=== PATIENT | male | born 1995 ===

== ENCOUNTER 2019-04-02 04:31 | Emergency (ER) | payer SELFPAY ==
[2019-04-02] MEDS ORDERED: SOLU-Medrol IM ONE (05:08)
[2019-04-02] MEDS ORDERED: BENADRYL PO ONE (05:08)
[2019-04-02] MEDS ORDERED: PEPCID PO ONE (05:09)
--- NOTE | 2019-04-02 05:53 | Emergency Department Report ---
ED General Adult HPI - General Chief complaint: Skin Rash Stated complaint: FOOT RASH Source: patient Mode of arrival: Ambulatory Limitations: No Limitations - History of Present Illness Initial comments: Patient is a 24-year-old -[place] male with no past medical history who presents to the ED with complaint of acute onset persistent itchy erythematous maculopapular urticarial rashes on the dorsal aspect of the feet bilaterally for the last 2 days. Patient states that the itching has been persistent and he describes his as burning sensation. Patient states that he cannot remember any new detergents or fabric home that he may have been exposed to. Patient denies swollen lips, swollen tongue, dizziness, sore throat, cough, wheezing, nausea, vomiting, fever, chills, dysphagia, dysphonia, nasal and sinus congestion or insect bite. MD Complaint: Itching rash; erythematous rash on feet -: Sudden, days(s) (2) Location: lower extremity (bilateral feet) Radiation: non-radiation, extremity (Bilateral dorsal foot) Quality: burning, aching, constant, other (itching) Consistency: constant Improves with: none Worsens with: none Associated Symptoms: denies other symptoms, rash (erythematous maculopapular urticarial rashes on the dorsal feet bilaterally). denies: confusion, chest pain, cough, diaphoresis, fever/chills, headaches, malaise, nausea/vomiting Treatments Prior to Arrival: none - Related Data Previous Rx's Medication Instructions Recorded Last Taken Type Triamcinolone Acetonide 1 applic TP Q12H #15 oint...g. 04/02/19 Unknown Rx diphenhydrAMINE [Benadryl CAP] 25 mg PO Q6HR PRN #30 capsule 04/02/19 Unknown Rx methylPREDNISolone [Medrol 4MG 4 mg PO DAILY #21 tab.ds.pk 04/02/19 Unknown Rx DOSEPAK (21 tabs)] raNITIdine HCl [Zantac] 150 mg PO Q12H #24 tablet 04/02/19 Unknown Rx Allergies Allergy/AdvReac Type Severity Reaction Status Date / Time No Known Allergies Allergy Verified 04/02/19 04:38 ED Review of Systems ROS: Stated complaint: FOOT RASH Other details as noted in HPI Constitutional: denies: chills, fever Eyes: denies: eye pain, eye discharge, vision change ENT: denies: ear pain, throat pain Respiratory: denies: cough, shortness of breath, wheezing Cardiovascular: denies: chest pain, palpitations Endocrine: no symptoms reported Gastrointestinal: denies: abdominal pain, nausea, diarrhea Genitourinary: denies: urgency, dysuria Musculoskeletal: denies: back pain, joint swelling, arthralgia Skin: rash (erythematous itchy maculopapular urticarial rash on the dorsum of feet), change in color (erythematous rash on the dorsal feet), pruritus. denies: lesions Neurological: denies: headache, weakness, paresthesias Psychiatric: denies: anxiety, depression Hematological/Lymphatic: denies: easy bleeding, easy bruising ED Past Medical Hx - Past Medical History Previous Medical History?: No - Surgical History Past Surgical History?: No - Social History Smoking Status: Never Smoker Substance Use Type: None - Medications Home Medications: Home Medications Medication Instructions Recorded Confirmed Last Taken Type Triamcinolone Acetonide 1 applic TP Q12H #15 oint...g. 04/02/19 Unknown Rx diphenhydrAMINE [Benadryl CAP] 25 mg PO Q6HR PRN #30 capsule 04/02/19 Unknown Rx methylPREDNISolone [Medrol 4MG 4 mg PO DAILY #21 tab.ds.pk 04/02/19 Unknown Rx DOSEPAK (21 tabs)] raNITIdine HCl [Zantac] 150 mg PO Q12H #24 tablet 04/02/19 Unknown Rx ED Physical Exam - General Limitations: No Limitations General appearance: alert, in no apparent distress - Head Head exam: Present: atraumatic, normocephalic, normal inspection - Eye Eye exam: Present: normal appearance, PERRL, EOMI Pupils: Present: normal accommodation - ENT ENT exam: Present: normal exam, normal orophraynx, mucous membranes moist, TM's normal bilaterally, normal external ear exam - Neck Neck exam: Present: normal inspection, full ROM - Respiratory Respiratory exam: Present: normal lung sounds bilaterally. Absent: respiratory distress, wheezes, rhonchi, chest wall tenderness, decreased breath sounds, prolonged expiratory - Cardiovascular Cardiovascular Exam: Present: regular rate, normal rhythm, normal heart sounds. Absent: systolic murmur, diastolic murmur, rubs, gallop - GI/Abdominal GI/Abdominal exam: Present: soft, normal bowel sounds. Absent: tenderness, guarding - Rectal Rectal exam: Present: deferred - Extremities Exam Extremities exam: Present: normal inspection, full ROM, normal capillary refill - Back Exam Back exam: Present: normal inspection, full ROM - Neurological Exam Neurological exam: Present: alert, oriented X3, CN II-XII intact, normal gait, reflexes normal - Psychiatric Psychiatric exam: Present: normal affect, normal mood - Skin Skin exam: Present: warm, dry, intact, normal color, rash (erythematous maculopapular urticarial rash on the dorsal feet bilaterally) ED Course Vital Signs 04/02/19 04:32 Temperature 98.5 F Pulse Rate 85 Respiratory 18 Rate Blood Pressure 137/91 O2 Sat by Pulse 98 Oximetry - Reevaluation(s) Reevaluation #1: 04/02/19 06:02 This is a 24-year-old male presented to the ED with complaint of acute onset of persistent itchy erythematous maculopapular rashes bilaterally on the dorsal aspect of the feet for 2 days. In the ED, patient is alert and oriented 3 and is not in distress. Patient was treated in the ED for acute allergic reaction with steroids, Benadryl and Pepcid. On reevaluation, patient's itching is well controlled with medication and patient was discharged home on medications and advised to follow-up with his primary care physician in 7-10 days for reevaluation or return to the ED immediately if symptoms get worse. ED Medical Decision Making - Medical Decision Making This is a 24-year-old male presented to the ED with complaint of acute onset of persistent itchy erythematous maculopapular rashes bilaterally on the dorsal asp ect of the feet for 2 days. In the ED, patient is alert and oriented 3 and is not in distress. Patient was treated in the ED for acute allergic reaction with steroids, Benadryl and Pepcid. On reevaluation, patient's itching is well controlled with medication and patient was discharged home on medications and advised to follow-up with his primary care physician in 7-10 days for reevaluation or return to the ED immediately if symptoms get worse. - Differential Diagnosis acute allergic reaction; itching irritation; irritant dermatitis; Urticaria Critical care attestation.: If time is entered above; I have spent that time in minutes in the direct care of this critically ill patient, excluding procedure time. ED Disposition Clinical Impression: Itching with irritation, Acute urticaria, Irritant dermatitis Acute allergic reaction Qualifiers: Encounter type: initial encounter Qualified Code(s): T78.40XA - Allergy, unspecified, initial encounter Disposition: TO HOME OR SELFCARE Is pt being admited?: No Does the pt Need Aspirin: No Condition: Stable Instructions: Itchy Skin (ED), Urticaria (ED), Allergies (ED), Contact Dermatitis (ED) Additional Instructions: Take medications with food, drink plenty of fluids and follow up with your primary care physician in 7-10 days for reevaluation. Return to the ED immediately if symptoms get worse. Prescriptions: diphenhydrAMINE [Benadryl CAP] 25 mg PO Q6HR PRN #30 capsule PRN Reason: Itching methylPREDNISolone [Medrol 4MG DOSEPAK (21 tabs)] 4 mg PO DAILY #21 tab.ds.pk Triamcinolone Acetonide 1 applic TP Q12H #15 oint...g. raNITIdine HCl [Zantac] 150 mg PO Q12H #24 tablet Referrals: PHILLIP BROWN MD [Primary Care Provider] - 3-5 Days Time of Disposition: 05:50 Print Language: YAKUT
[2019-04-02 06:12] VITALS: BP 141/90
== END 2019-04-02 06:11 | disposition home or self-care (01) ==
LOC: ED 04:31
DX: T78.40XA Allergy, unspecified, initial encounter (principal); Z79.899 Other long term (current) drug therapy; X58.XXXA Exposure to other specified factors, initial encounter; Y93.89 Activity, other specified; Y92.89 Other specified places as the place of occurrence of the external cause; Y99.8 Other external cause status
CPT/HCPCS: 96372; 99282; J2930